=== PATIENT | male | born 1995 | race Caucasian/White ===

== ENCOUNTER 2017-07-01 14:49 | Emergency (ER) | payer OTHER ==
[2017-07-01] MEDS ORDERED: Lidocaine 1% 5ml(IM or SUTURE)(PAIN CLINIC) ONE (14:54)
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
[2017-07-01] MEDS ORDERED: DIPH,PERTUSS(ACELL),TET VAC/PF 0.5 ML DISP.SYRIN IM ONE (15:21)
[2017-07-01] MEDS ORDERED: Lidocaine 1% 5ml(IM or SUTURE)(PAIN CLINIC) IJ ONE (15:41)
[2017-07-01] MEDS ORDERED: fentaNYL CITRATE/PF 100 MCG/ 2ML AMP ONE (17:38)
[2017-07-01] MEDS ORDERED: fentaNYL CITRATE/PF 100 MCG/ 2ML AMP IVP ONE (17:42)
[2017-07-01 17:49] VITALS: BP 134/79
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
--- NOTE | 2017-07-01 18:32 | Diagnostic Imaging Report ---
ANTONY CASTELLANO~ [facility] [address] [facility] [address] [address] ~ ~ ~ ~ Report Submission Date: Jul 01, 2017 4:19:40 PM CDT Patient ~ Study Name: FLORINDA SPAULDING ~ Date: Jul 01, 2017 3:46:44 PM CDT ~ Modality Type: CR Gender: M ~ Description: UPPER EXTREMITY : 93 ~ Institution: [facility] Physician: ANTONY CASTELLANO ~ ~ ~ ~ 3 views of the left wrist Clinical history: Left wrist injury Findings: There is a communicated fracture of the distal radius with dislocation of the radius and ulna dorsally. There is also a fracture of the ulnar styloid. Impression: Fracture dislocation of the distal radius and ulna as above. ~ Electronically signed on Jul 01, 2017 4:19:40 PM CDT by: Scott CAMACHO
== END 2017-07-01 17:46 | disposition short-term general hospital (02) ==
LOC: ED 14:49
DX: S09.90XA Unspecified injury of head, initial encounter (principal); S62.102A Fracture of unspecified carpal bone, left wrist, initial encounter for closed fracture; S01.81XA Laceration without foreign body of other part of head, initial encounter; S01.412A Laceration without foreign body of left cheek and temporomandibular area, initial encounter; X58.XXXA Exposure to other specified factors, initial encounter; Y93.9 Activity, unspecified; Y99.9 Unspecified external cause status
CPT/HCPCS: 70450; 73110; 90715; J3010; 12015; 90471; 96372; 99284; S1016